=== PATIENT | female | born 1975 | race Caucasian/White ===

== ENCOUNTER → 2016-11-13 | Outpatient (CLI) | payer OTHER ==
[2016-11-13 13:09] LABS: BASO % 0.6 % (0.0-1.0); EOS # 0.2 K/mm3 (0.0-0.50); EOS % 1.8 % (0.0-3.0); LARGE UNSTAINED CELL # 0.1 K/mm3 (0.0-0.4); LARGE UNSTAINED CELL % 1.2 % (0.0-4.0); LYMPH # 2.9 K/mm3 (1.5-4.5); MEAN CORPUSCULAR HEMOGLOBIN 31.6 pg (27.0-33.0); MEAN CORPUSCULAR HGB CONC 32.9 g/dl (32.0-36.5); MEAN CORPUSCULAR VOLUME 96.2 fl (80.0-96.0); MONO # 0.5 K/mm3 (0.0-0.8); NEUTROPHILS # 5.9 K/mm3 (1.8-7.7); NEUTROPHILS % 62.5 % (36.0-66.0); PLATELET COUNT, AUTOMATED 191 k/mm3 (150-450); RED CELL DISTRIBUTION WIDTH 13.6 % (11.5-14.5); WHITE BLOOD COUNT 9.4 K/mm3 (4.0-10.0)
[2016-11-13 14:06] LABS: ANION GAP 8 MEQ/L (8-16); BLOOD UREA NITROGEN 15 MG/DL (7-18); CALCIUM LEVEL 9.1 MG/DL (8.5-10.1); CARBON DIOXIDE LEVEL 27 MEQ/L (21-32); CHLORIDE LEVEL 105 MEQ/L (98-107); CREATININE FOR GFR 0.65 MG/DL (0.55-1.02); GLOMERULAR FILTRATION RATE > 60.0 (>58); GLUCOSE, FASTING 88 MG/DL (70-105); POTASSIUM SERUM 4.7 MEQ/L (3.5-5.1); SODIUM LEVEL 140 MEQ/L (136-145)
[2016-11-13 14:37] LABS: ERYTHROCYTE SEDIMENTATION RATE 2 mm/hr (0-20)
== END ==
LOC: M WUC 10:45
PROVIDERS: ATTEND Physician Assistant
DX: R21 Rash and other nonspecific skin eruption (principal)

== ENCOUNTER → 2020-08-27 | Outpatient (CLI) | payer OTHER ==
--- NOTE | 2020-08-27 16:08 | REP ---
INDICATION: PAIN. COMPARISON: None TECHNIQUE: Four views FINDINGS: There is a fracture involving the distal diaphysis of the proximal phalanx of the 4th digit. This is minimally displaced. Degenerative changes seen throughout the remainder of the imaged portion of the foot. IMPRESSION: Fourth digital fracture as described above. <Electronically signed by Deep Wilson > 08/27/20 [id number]
== END ==
LOC: M WUC 15:25
PROVIDERS: ATTEND Nurse Practitioner Family
DX: M79.674 Pain in right toe(s) (principal)

== ENCOUNTER → 2020-09-02 | Outpatient (CLI) | payer OTHER ==
--- NOTE | 2020-09-02 11:59 | REP ---
INDICATION: F/U FX. COMPARISON: None. TECHNIQUE: AP, lateral, oblique views of the right 4th toe. FINDINGS: Healing nondisplaced fracture of the proximal phalanx noted. IMPRESSION: Stable healing fracture of the proximal phalanx 4th toe. <Electronically signed by Mitch Hyman > 09/02/20 [id number]
== END ==
LOC: M SOG 09:42
PROVIDERS: ATTEND Orthopaedic Surgery Adult Reconstructive Orthopaedic Surgery
DX: M79.674 Pain in right toe(s) (principal)

== ENCOUNTER → 2020-09-30 | Outpatient (CLI) | payer OTHER ==
--- NOTE | 2020-09-30 12:33 | REP ---
INDICATION: NONDISP FX PF PROXIMAL PHALANX OF RIGHT LESSER TOE. COMPARISON: 09/02/2020 TECHNIQUE: Four views right foot 4th digit FINDINGS: There is a fracture of the proximal phalanx of the 4th digit of the right foot with associated soft tissue swelling. There does appear to be subtle callus formation surrounding the fracture fragments. IMPRESSION: Healing fracture as described above. <Electronically signed by Deep Wilson > 09/30/20 [id number]
== END ==
LOC: M SOG 08:37
PROVIDERS: ATTEND Orthopaedic Surgery Adult Reconstructive Orthopaedic Surgery
DX: S92.514A Nondisplaced fracture of proximal phalanx of right lesser toe(s), initial encounter for closed fracture (principal); X58.XXXA Exposure to other specified factors, initial encounter; Y92.89 Other specified places as the place of occurrence of the external cause; Y93.9 Activity, unspecified; Y99.9 Unspecified external cause status

== ENCOUNTER → 2020-10-13 | Outpatient (CLI) | payer OTHER ==
--- NOTE | 2020-10-13 14:03 | REP ---
INDICATION: NONDISP FX OF PROXIMAL PHALANX OF RIGHT LESSER TOE. COMPARISON: 08/27/2020 TECHNIQUE: AP, lateral, bilateral oblique views the right 4th toe FINDINGS: Nondisplaced healing fracture of the proximal phalanx noted. Underlying age-related changes are appreciated. IMPRESSION: Nondisplaced healing fracture of the 4th toe proximal phalanx. <Electronically signed by Mitch Hyman > 10/13/20 [id number]
== END ==
LOC: M SOG 13:24
PROVIDERS: ATTEND Orthopaedic Surgery Adult Reconstructive Orthopaedic Surgery
DX: S92.514A Nondisplaced fracture of proximal phalanx of right lesser toe(s), initial encounter for closed fracture (principal); X58.XXXA Exposure to other specified factors, initial encounter; Y92.9 Unspecified place or not applicable